=== PATIENT | male | born 1925 | race Caucasian/White ===

== ENCOUNTER 2016-08-18 11:20 | Emergency (ER) | payer OTHER ==
[~2016-08-18] VITALS: Ht 167.6 cm; Wt 66.0 kg
[~2016-08-18 11:20] MED LIST: ATOR20TA PO; ECOT81TA2 PO; GABA300C3 PO; GLIP5 PO; LOSA25TA31 PO; METF850T OR; METO50CR PO; MULT-65 PO; OMEG5CAP PO; OXYB5TAB PO; OXYC1SOL5 PO; VITA400C28 PO; Z.0.OXYGENDME NC
[2016-08-18 11:34] VITALS: BP 113/62; PULSE 75; RESP 18; TEMP 99; O2SAT 97
[2016-08-18] MEDS ORDERED: FISH120014 PO (11:54)
[2016-08-18] MEDS ORDERED: OXYB5TAB10 PO (11:54)
[2016-08-18] MEDS ORDERED: HYDR-3534 PO (11:54)
[2016-08-18] MEDS ORDERED: ASPI1TAB69 PO (11:54)
[2016-08-18] MEDS ORDERED: LOSA25TA PO (11:54)
[2016-08-18] MEDS ORDERED: METF850T PO (11:54)
[2016-08-18] MEDS ORDERED: METO50TA11 PO (11:54)
[2016-08-18] MEDS ORDERED: ATOR20TA15 PO (11:54)
[2016-08-18] MEDS ORDERED: GABA300C5 PO (11:54)
[2016-08-18] MEDS ORDERED: VITA400T2 PO (11:54)
[2016-08-18] MEDS ORDERED: MULT-135 PO (11:54)
[2016-08-18] MEDS ORDERED: GLIP5TAB8 PO (11:54)
[2016-08-18] MEDS ORDERED: TETANUS/DIPHTHERIA TOXOID PEDIATRIC 0.5 ML VIAL IM ONE (12:00)
[2016-08-18] MEDS ORDERED: SODIUM CHLORID 0.9% 500 ML INJ 500 ML IV ONE (12:00)
--- NOTE | 2016-08-18 12:07 | PD ---
HPI Chief Complaint: Fall Time Seen by Provider: 11:45 Travel History International Travel<30 days: No Contact w/Intl Traveler<30days: No Traveled to known affect area: No History of Present Illness HPI The patient is a 89-year-old male who presents to the emergency department after trip and fall. The patient states that he awakened at 4 AM to use the restroom and subsequently fell. The patient states he fell next to the bed and was able to stand up with supportive the bed and ambulate to the bathroom. The patient then went to the recliner and slept until this morning. The patient states he got out of the recliner this morning and his knees "gave out ", and he fell to the ground. The patient states he struck his head and has a hematoma behind the right ear. He also complains of left arm pain over the left proximal humerus. The patient's symptoms are moderate, no alleviating factors, exacerbated after falling. The patient does take aspirin daily. PFSH Past Medical History Hx Anticoagulant Therapy: Yes (ASPIRIN 162 MG) Arthritis: No Asthma: No Atrial Fibrillation: Yes Heart Rhythm Problems: Yes (PVC'S OBSERVED ON TELE) Cancer: No Cardiovascular Problems: Yes (htn on meds, triple bypass) High Cholesterol: Yes Chest Pain: No Congestive Heart Failure: No COPD: No Cerebrovascular Accident: No Coronary Artery Disease: Yes (ANGINA) Diabetes: Yes Patient Takes Glucophage: Yes Diminished Hearing: Yes Endocrine: Yes Gastrointestinal Disorders: Yes GERD: No Glaucoma: No Genitourinary: No Hepatitis: No Hiatal Hernia: No Hypertension: Yes Immune Disorder: Yes (SHINGLES ) Medical other: Yes (GERD) Musculoskeletal: Yes (LEFT UPPER ARM BRUISING AFTER CHIROPRACTIC TREATMENT) Neurologic: No Psychiatric: No Reproductive: No Respiratory: No Shingles: Yes Sleep Apnea: No Thyroid Disease: No Ulcer: No Past Surgical History Abdominal Surgery: No Appendectomy: Yes Cardiac Surgery: Yes (BILATERAL ENDARTERECTOMY 12 YEARS AGO, CORONARY STENT 1996) Cholecystectomy: Yes Coronary Artery Bypass Graft: Yes Coronary Stent: Yes (X3) Ear Surgery: No Endocrine Surgery: No Eye Surgery: Yes (BILATERAL CATARACTS) Genitourinary Surgery: No Gynecologic Surgery: No Joint Replacement: Yes (SHOULDER) Neurologic Surgery: No Oral Surgery: No Pacemaker: Yes Thoracic Surgery: No Tonsillectomy: Yes Other Surgery: Yes (BILATERAL CAROTID ENDARDERECTOMY) Social History Alcohol Use: No Tobacco Use: No Substance Use: No Allergies-Medications (Allergen,Severity, Reaction): Coded Allergies: No Known Allergies (Verified , 08/18/16) Reported Meds & Prescriptions Reported Meds & Active Scripts Active Reported Lyrica (Pregabalin) 25 Mg Cap Unknown Dose PO DAILY Fish Oil ([place]-3 Fatty Acids) 1,200 Mg Cap 1 Tab PO DAILY Lortab (Hydrocodone-Acetaminophen) 7.5-325 Mg Tab 1 Tab PO Q6H PRN Ditropan (Oxybutynin Chloride) 5 Mg Tab 5 Mg PO Q12HR Multi Vitamin (Multiple Vitamin) 1 Tab Tab 1 Tab PO DAILY Metoprolol Succinate ER 24 HR (Metoprolol Succinate) 50 Mg Tab 50 Mg PO DAILY Metformin (Metformin HCl) 850 Mg Tab 850 Mg PO BIDPC With meals Losartan (Losartan Potassium) 25 Mg Tab 12.5 Mg PO DAILY Glipizide 5 Mg Tab 5 Mg PO DAILY Take 30 minutes before a meal Gabapentin 300 Mg Cap 300 Mg PO TID Vitamin D (Cholecalciferol) 400 Unit Tab 1 Tab PO DAILY Atorvastatin (Atorvastatin Calcium) 20 Mg Tab 20 Mg PO HS Aspirin 81 Mg Tabdr 81 Mg PO DAILY Review of Systems Except as stated in HPI: all other systems reviewed are Neg General / Constitutional: No: Fever Eyes: No: Blurred Vision, Visual changes HENT: Positive: Headaches, No: Neck Pain Cardiovascular: No: Chest Pain or Discomfort Respiratory: No: Shortness of Breath Gastrointestinal: No: Nausea, Vomiting, Abdominal Pain Musculoskeletal: Positive: Limited ROM, Weakness, Pain Neurologic: No: Dizziness Physical Exam Narrative GENERAL: Awake, alert, pleasant 89-year-old male who appears his stated age and is in no acute respiratory distress. SKIN: Superficial abrasions over the right lower extremity distal to the knee.. HEAD: Hematoma behind the right ear. No blood in the EACs. EYES: No injection or drainage.. ENT: No nasal bleeding or discharge. Slightly dry mucous membranes. NECK: Trachea midline. No JVD. Well-healed scar in the posterior aspect of the neck. CARDIOVASCULAR: Regular rate and rhythm. No murmur appreciated. RESPIRATORY: No accessory muscle use. Clear to auscultation. Breath sounds equal bilaterally. GASTROINTESTINAL: Abdomen soft, non-tender, nondistended. No rebound tenderness. MUSCULOSKELETAL: Well-healed scar over the anterior aspect of the left shoulder. Tenderness over the proximal left humerus and distal left humerus. Positive left radial pulse. Full range of motion lower extremities and right upper extremity. NEUROLOGICAL: Awake and alert. No obvious cranial nerve deficits. Motor grossly within normal limits. Normal speech. PSYCHIATRIC: Appropriate mood and affect; insight and judgment normal. Data Data Last Documented VS Vital Signs Date Time Temp Pulse Resp B/P Pulse Ox O2 Delivery O2 Flow Rate FiO2 08/18/16 13:04 60 18 103/61 100 Room Air 08/18/16 11:[address] Brain W/O Iv Contrast(Rout) (08/18/16 ) Humerus (Min 2vws) (08/18/16 ) Chest, Single Ap (08/18/16 ) Complete Blood Count With Diff (08/18/16 11:55) Basic Metabolic Panel (Bmp) (08/18/16 11:55) Urinalysis - C+S If Indicated (08/18/16 11:55) Electrocardiogram (08/18/16 ) Creatine Kinase (Cpk) (08/18/16 11:55) Troponin I (08/18/16 11:55) Tetanus-Diphther Tox Peds Inj (Tetanus-D (08/18/16 12:00) Sodium Chlorid 0.9% 500 Ml Inj (Ns 500 M (08/18/16 12:00) Morphine Inj (Morphine Inj) (08/18/16 12:15) Ondansetron Inj (Zofran Inj) (08/18/16 12:15) Labs Laboratory Tests Test 08/18/16 08/18/16 12:10 12:55 White Blood Count 15.4 TH/MM3 Red Blood Count 3.77 MIL/MM3 Hemoglobin 12.5 GM/DL Hematocrit 36.9 % Mean Corpuscular Volume 97.8 FL Mean Corpuscular Hemoglobin 33.1 PG Mean Corpuscular Hemoglobin 33.9 % Concent Red Cell Distribution Width 12.7 % Platelet Count 358 TH/MM3 Mean Platelet Volume 7.5 FL Neutrophils (%) (Auto) 87.0 % Lymphocytes (%) (Auto) 8.5 % Monocytes (%) (Auto) 3.8 % Eosinophils (%) (Auto) 0.6 % Basophils (%) (Auto) 0.1 % Neutrophils # (Auto) 13.4 TH/MM3 Lymphocytes # (Auto) 1.3 TH/MM3 Monocytes # (Auto) 0.6 TH/MM3 Eosinophils # (Auto) 0.1 TH/MM3 Basophils # (Auto) 0.0 TH/MM3 CBC Comment DIFF FINAL Differential Comment Sodium Level 141 MEQ/L Potassium Level 4.4 MEQ/L Chloride Level 103 MEQ/L Carbon Dioxide Level 28.0 MEQ/L Anion Gap 10 MEQ/L Blood Urea Nitrogen 27 MG/DL Creatinine 1.30 MG/DL Estimat Glomerular Filtration 52 ML/MIN Rate Random Glucose 247 MG/DL Calcium Level 10.0 MG/DL Total Creatine Kinase 74 U/L Troponin I LESS THAN 0.02 NG/ML Urine Collection Type CLEAN CATCH Urine Color YELLOW Urine Turbidity CLEAR Urine pH 6.0 Urine Specific [place] 1.016 Urine Protein NEG mg/dL Urine Glucose (UA) 100 mg/dL Urine Ketones NEG mg/dL Urine Occult Blood NEG Urine Nitrite NEG Urine Bilirubin NEG Urine Leukocyte Esterase NEG Urine RBC 0-3 /hpf Urine WBC 0-2 /hpf Urine Squamous Epithelial 0-5 /hpf Cells Microscopic Urinalysis Comment CULT NOT INDICATED Urine Collection Time 12:55 [facility] Medical Decision Making Medical Screen Exam Complete: Yes Emergency Medical Condition: Yes Medical Record Reviewed: Yes Interpretation(s) EKG reveals sinus rhythm versus ectopic atrial rhythm. Nonspecific T wave changes. Laboratory Tests Test 08/18/16 08/18/16 12:10 12:55 White Blood Count 15.4 TH/MM3 Red Blood Count 3.77 MIL/MM3 Hemoglobin 12.5 GM/DL Hematocrit 36.9 % Mean Corpuscular Volume 97.8 FL Mean Corpuscular Hemoglobin 33.1 PG Mean Corpuscular Hemoglobin 33.9 % Concent Red Cell Distribution Width 12.7 % Platelet Count 358 TH/MM3 Mean Platelet Volume 7.5 FL Neutrophils (%) (Auto) 87.0 % Lymphocytes (%) (Auto) 8.5 % Monocytes (%) (Auto) 3.8 % Eosinophils (%) (Auto) 0.6 % Basophils (%) (Auto) 0.1 % Neutrophils # (Auto) 13.4 TH/MM3 Lymphocytes # (Auto) 1.3 TH/MM3 Monocytes # (Auto) 0.6 TH/MM3 Eosinophils # (Auto) 0.1 TH/MM3 Basophils # (Auto) 0.0 TH/MM3 CBC Comment DIFF FINAL Differential Comment Sodium Level 141 MEQ/L Potassium Level 4.4 MEQ/L Chloride Level 103 MEQ/L Carbon Dioxide Level 28.0 MEQ/L Anion Gap 10 MEQ/L Blood Urea Nitrogen 27 MG/DL Creatinine 1.30 MG/DL Estimat Glomerular Filtration 52 ML/MIN Rate Random Glucose 247 MG/DL Calcium Level 10.0 MG/DL Total Creatine Kinase 74 U/L Troponin I LESS THAN 0.02 NG/ML Urine Collection Type CLEAN CATCH Urine Color YELLOW Urine Turbidity CLEAR Urine pH 6.0 Urine Specific [place] 1.016 Urine Protein NEG mg/dL Urine Glucose (UA) 100 mg/dL Urine Ketones NEG mg/dL Urine Occult Blood NEG Urine Nitrite NEG Urine Bilirubin NEG Urine Leukocyte Esterase NEG Urine RBC 0-3 /hpf Urine WBC 0-2 /hpf Urine Squamous Epithelial 0-5 /hpf Cells Microscopic Urinalysis Comment CULT NOT INDICATED Urine Collection Time 12:55 X-ray EMS reveals left shoulder prosthesis in place. An acute fracture is not seen. Chest x-ray reveals right basilar interstitial prominence which may be chronic. No evidence of consolidated airspace disease or significant congestion. Stable. Pacemaker. Status post CABG. CT the brain reveals subcutaneous soft tissue swollen right occipital region. No evidence of acute intracranial trauma, acute infarct, hemorrhage, mass, or edema. Age and brain with generalized atrophy and chronic white matter changes. Differential Diagnosis Differential diagnosis includes closed head injury, concussion, intracranial hemorrhage, humeral fracture, hyponatremia, acute renal failure, dehydration. Narrative Course IV was established, labs are drawn and sent, and the patient was placed on cardiac telemetry monitoring and continuous pulse oximetry monitoring. EKG was ordered and interpreted. Chest x-ray and left humerus x-ray were obtained. CT the brain was obtained. The patient was administered normal saline, morphine, and Zofran. A tetanus shot was ordered, however, EMR reveals the patient had a tetanus shot administered in 2016, therefore, it was canceled. The patient's white count reveals mildly elevated white count of 15.2, however, patient is mildly dehydrated. Patient is afebrile on UA is negative. Chest x-ray is negative for acute fracture. X-ray left arm reveals prosthesis in place but no acute fracture. The patient will be discharged home, is advised to follow-up with his pain interventionalist and primary physician. Return if symptoms worsen or progress. Diagnosis Primary Impression: Fall Qualified Code: W19.XXXA - Fall, initial encounter Additional Impressions: Hematoma Chronic pain Qualified Code: G89.29 - Other chronic pain Patient Instructions: General Instructions Additional Instructions: Please provide the patient a copy of his labs, x-rays, and CT reports at discharge. Follow-up with your pain specialist and/or primary physician. Return if symptoms worsen or progress. Med/Other Pt SpecificInfo: Prescription(s) given Disposition: 01 DISCHARGE HOME Condition: Stable Gee Sauer MD Aug 18, 2016 12:07
[2016-08-18] MEDS ORDERED: MORPHINE SULFATE 4 MG/ML INJ IV PUSH ONE ×2 (12:15→14:00)
[2016-08-18] MEDS ORDERED: ONDANSETRON HCL 4 MG/2 ML VIAL IV PUSH ONE (12:15)
[2016-08-18 12:18] LABS: AUTOMATED NEUTROPHIL # 13.4 TH/MM3 (1.8-7.7); BASOPHIL % 0.1 % (0.0-2.0); EOSINOPHIL # 0.1 TH/MM3 (0-0.4); EOSINOPHIL % 0.6 % (0.0-4.0); HEMATOCRIT 36.9 % (39.0-51.0); HEMO FLAGS DIFF FINAL; LYMPH % 8.5 % (9.0-44.0); LYMPHOCYTE # 1.3 TH/MM3 (1.0-4.8); MEAN CELL VOLUME 97.8 FL (80.0-100.0); MEAN CORPUSCULAR HEMOGLOBIN 33.1 PG (27.0-34.0); MEAN CORPUSCULAR HGB CONC 33.9 % (32.0-36.0); MONO % 3.8 % (0.0-8.0); PLATELET COUNT 358 TH/MM3 (150-450); RED BLOOD COUNT 3.77 MIL/MM3 (4.50-5.90); RED CELL DISTRIBUTION WIDTH 12.7 % (11.6-17.2); WHITE BLOOD COUNT 15.4 TH/MM3 (4.0-11.0)
[2016-08-18 12:28] LABS: CHLORIDE 103 MEQ/L (98-107); POTASSIUM 4.4 MEQ/L (3.5-5.1); SODIUM (NA) 141 MEQ/L (136-145)
[2016-08-18 12:32] LABS: ANION GAP 10 MEQ/L (5-15); BLOOD UREA NITROGEN 27 MG/DL (7-18)
[2016-08-18 12:35] LABS: GLOMERULAR FILTRATION RATE 52 ML/MIN (>89)
[2016-08-18 12:56] LABS: CREATINE KINASE 74 U/L (39-308)
[2016-08-18 13:03] LABS: BLOOD, URINE NEG (NEG); GLUCOSE,URINE 100 mg/dL (NEG); KETONE, URINE NEG (NEG); NITRITE,URINE NEG (NEG)
[2016-08-18 13:04] VITALS: BP 103/61; PULSE 60; RESP 18; O2SAT 100
[2016-08-18] MEDS ORDERED: PREG25 PO (13:06)
[2016-08-18 13:07] LABS: METHOD OF COLLECTION CLEAN CATCH; RBC, URINE 0-3 /hpf (0-3); URINE COLOR YELLOW (YELLW/STRAW); WBC, URINE 0-2 /hpf (0-5)
[2016-08-18 13:08] LABS: COMMENT (UR) CULT NOT INDICATED; CULTURE IF INDICATED CULT NOT INDICATED; SQUAMOUS EPITHELIAL CELL URINE 0-5 /hpf (0-5)
--- NOTE | 2016-08-18 13:33 | RADHPO ---
EXAM DATE/TIME: 08/18/2016 12:23 [facility] COMPARISON: CHEST SINGLE AP, May 10, 2015, 6:31. INDICATIONS : Shortness of breath. MEDICAL HISTORY : Hypertension. Coronary artery disease. SURGICAL HISTORY : Coronary artery stent. CABG. Pacemaker. ENCOUNTER: Initial ACUITY: 1 day PAIN SCORE: 0/10 LOCATION: Bilateral chest FINDINGS: Interstitial prominence is evident in the right lung base. There are no consolidating infiltrates. Heart and mediastinal structures are stable. Median sternotomy wires from previous surgery noted. Pac emaker is in stable position. CONCLUSION: Right basilar interstitial prominence which may be chronic. No evidence of consolidating airspace disease or significant congestion. Stable appearing pacemaker. Status post CABG. Celio Strong MD on August 18, 2016 at 13:30 Board Certified Radiologist. This report was verified electronically.
--- NOTE | 2016-08-18 13:36 | RADHPO ---
EXAM DATE/TIME: 08/18/2016 12:30 [facility] COMPARISON: No previous studies available for comparison. INDICATIONS : Fell and hit right side of head. RADIATION DOSE: 54.36 CTDIvol (mGy) MEDICAL HISTORY : Hypertension. Cardiovascular disease SURGICAL HISTORY : CABG Bilateral endarectomy ENCOUNTER: Initial ACUITY: 1 day PAIN SCALE: 3/10 LOCATION: Right cranial TECHNIQUE: Multiple contiguous axial images were obtained of the head. Using automated exposure control and adj ustment of the mA and/or kV according to patient size, radiation dose was kept as low as reasonably a chievable to obtain optimal diagnostic quality images. FINDINGS: Generalized volume loss consistent with atrophy and an aging brain is noted. There is mild bilateral cerebral white matter hypointensity. There is no evidence of acute infarct, hemorrhage or edema. There are no extra-axial fluid collections. Soft tissue swelling is identified in the right occipital region. The right globe is hyperdense. CONCLUSION: Subcutaneous soft tissue swelling right occipital region. No evidence of acute intracranial trauma, acute infarct, hemorrhage, mass or edema. Aging brain with generalized atrophy and chronic white matter changes. Celio Strong MD on August 18, 2016 at 13:32 Board Certified Radiologist. This report was verified electronically.
--- NOTE | 2016-08-18 13:37 | RADHPO ---
EXAM DATE/TIME: 08/18/2016 12:16 [facility] COMPARISON: HUMERUS LEFT (MIN 2VWS), May 17, 2016, 8:42. INDICATIONS: Left humerus pain from fall today. MEDICAL HISTORY: None. SURGICAL HISTORY: Left shoulder arthroplasty. ENCOUNTER: Initial ACUITY: 1 day PAIN SCORE: 9/10 LOCATION: Left humerus. FINDINGS: Patient has a left shoulder prosthesis in place. The prosthetic components appear well placed. Ther e is no dislocation. No fracture is seen. There is a pacemaker in place in the left chest. CONCLUSION: Left shoulder prosthesis in place. An acute fracture is not seen. Blake Pimentel MD on August 18, 2016 at 13:24 Board Certified Radiologist. This report was verified electronically.
[2016-08-18 14:01] VITALS: BP 103/61; PULSE 60; RESP 18; O2SAT 98
[2016-08-18 14:21] VITALS: RESP 18
--- NOTE | 2016-08-19 20:48 | EKG ---
Date Performed: 08/18/2016 Time Performed: 12:02:52 PTAGE: 89 years EKG: Possible ectopic atrial rhythm Extensive T wave changes Abnormal ECG PREVIOUS TRACING : 04/28/2015 11.39 DOCTOR: Reji Telles Interpretating Date/Time 08/19/2016 20:46:59
== END 2016-08-18 14:40 | disposition home or self-care (01) ==
LOC: PHED 11:20
DX: S00.431A Contusion of right ear, initial encounter (principal); S80.811A Abrasion, right lower leg, initial encounter; I48.91 Unspecified atrial fibrillation; E78.00 Pure hypercholesterolemia, unspecified; I25.10 Atherosclerotic heart disease of native coronary artery without angina pectoris; E11.9 Type 2 diabetes mellitus without complications; Z79.4 Long term (current) use of insulin; I10 Essential (primary) hypertension; Z96.619 Presence of unspecified artificial shoulder joint; Z95.0 Presence of cardiac pacemaker; Y93.9 Activity, unspecified; Y92.9 Unspecified place or not applicable; Y99.9 Unspecified external cause status; W18.09XA Striking against other object with subsequent fall, initial encounter; Z95.1 Presence of aortocoronary bypass graft
CPT/HCPCS: 70450; 71010; 73060; 80048; 81001; 82550; 84484; 85025; 93005; 96361; 96374; 96375; 96376; 99284; J2270; J2405; J7040